=== PATIENT | male | born 1940 | race Caucasian/White ===

== ENCOUNTER → 2016-09-08 | Outpatient (CLI) | payer OTHER ==
[2016-09-08 07:52] LABS: HEMATOCRIT 43.5 % (42.0-52.0); HEMOGLOBIN 14.9 g/dL (14.0-18.0); MEAN CORPUSCULAR HEMOGLOBIN 29.3 PG (27-31); MEAN CORPUSCULAR HGB CONC 34.3 g/dL (33-37); MEAN CORPUSCULAR VOLUME 85.6 FL (80-90); MEAN PLATELET VOLUME 8.8 FL (7.4-12.2); RED BLOOD COUNT 5.08 10^6/uL (4.70-6.10)
[2016-09-08 08:04] LABS: CHOL/HDL RATIO 2.91 RATIO (0-4.0)
[2016-09-08 08:04] LABS: BUN/CREATININE RATIO 17.5 (6-20); CALCIUM 9.3 mg/dL (8.7-10.7)
[2016-09-08 08:15] LABS: HEMOGLOBIN A1C 6.06 % (4.2-6.0)
== END ==
LOC: LAB 07:32
PROVIDERS: ATTEND Family Medicine
DX: E78.5 Hyperlipidemia, unspecified (principal); I10 Essential (primary) hypertension; R73.9 Hyperglycemia, unspecified
CPT/HCPCS: 36415; 80053; 80061; 83036; 84443; 85027

== ENCOUNTER → 2016-10-09 | Outpatient (CLI) | payer OTHER | LOC: MMPC 09:00 | PROVIDERS: ATTEND Family Medicine | DX: I10 Essential (primary) hypertension (principal); K21.9 Gastro-esophageal reflux disease without esophagitis; E78.5 Hyperlipidemia, unspecified; R10.11 Right upper quadrant pain; L57.0 Actinic keratosis; X32.XXXA Exposure to sunlight, initial encounter | CPT/HCPCS: 99214; G0463 ==

== ENCOUNTER → 2016-10-12 | Outpatient (CLI) | payer OTHER ==
--- NOTE | 2016-10-12 11:05 | DI ---
US ABDOMEN LIMITED,10/12/2016 8:34 AM: Clinical History: Right upper quadrant abdominal pain. Previous Exam: None at this facility. Findings: Multiple grayscale and color Doppler sonographic images are obtained of the right upper quadrant, and demonstrate a normal-appearing liver. The pancreas is not well seen. The gallbladder contained a single echogenic focus which appear to demonstrate some shadowing. This m easured 7 mm and was seen within the gallbladder neck. The gallbladder wall was normal and there is no pericholecystic fluid. Negative sonographic Mcmillan's sign is obtained. The common bile duct measures 3 mm. The right kidney is normal measuring 11.5 cm in length with a normal renal cortical thickness. There is a simple 2.5 cm cyst within the right kidney. Impression: Cholelithiasis. 3.5 cm simple cyst within the right kidney.
== END ==
LOC: US 08:21
PROVIDERS: ATTEND Nurse Practitioner Family
DX: R10.11 Right upper quadrant pain (principal); N28.1 Cyst of kidney, acquired
CPT/HCPCS: 76705

== ENCOUNTER → 2016-10-19 | Outpatient (CLI) | payer OTHER | LOC: MMPC 11:11 | PROVIDERS: ATTEND Surgery | DX: K80.20 Calculus of gallbladder without cholecystitis without obstruction (principal) | CPT/HCPCS: 99213; G0463 ==